=== PATIENT | male | born 1985 | race African-American/Black ===

== ENCOUNTER 2020-05-02 18:10 | Emergency (ER) | payer OTHER ==
[~2020-05-02] VITALS: Ht 170.2 cm; Wt 90.7 kg
[2020-05-02 19:39] LABS: ANION GAP 7 mmol/L (7-16); BUN 17 mg/dL (7-18); CALCIUM 9.4 mg/dL (8.5-10.1); CHLORIDE 105 mmol/L (98-107); CO2 29 mmol/L (21-32); CREATININE 1.3 mg/dL (0.7-1.3); GLUCOSE 85 mg/dL (74-106); POTASSIUM 4.5 mmol/L (3.5-5.1); SODIUM 141 mmol/L (136-145)
[2020-05-02 19:49] LABS: ALBUMIN 3.9 g/dL (3.4-5.0); SGOT 25 U/L (15-37); SGPT 36 U/L (30-65); TOTAL BILIRUBIN 0.2 mg/dL (0.2-1.0); TOTAL PROTEIN 7.9 g/dL (6.4-8.2); TROPONIN-I <0.06 ng/mL (<0.06)
[2020-05-02 19:51] LABS: HEMATOCRIT 43.8 % (42.0-52.0); HEMOGLOBIN 14.4 gm/dL (14.0-18.0); MCH 30.1 pg (26.0-34.0); MCHC 32.8 g/dL (28.0-37.0); MCV 91.6 fL (80.0-100.0); PLATELET COUNT 155 thou/uL (150-400); RBC 4.78 mil/uL (4.50-6.00); RDW 14.2 % (10.5-14.5); WBC 8.7 thou/uL (4.0-11.0)
[2020-05-02 20:30] LABS: ABSOLUTE NEUTROPHILS 4.6 thou/uL (1.4-8.2)
[2020-05-02] MEDS ORDERED: CYCLOBENZAPRINE5 MG PO (21:33)
[2020-05-02] MEDS ORDERED: MOBIC7.5 MG PO (21:33)
[2020-05-02 21:39] VITALS: BP 131/80
--- NOTE | 2020-05-03 07:10 | EKG ---
[facility] [place] [address] ELECTROCARDIOGRAM REPORT Name: SONJA KRUSE Room #: DEP [facility].#: [id number] Admission: 05/02/20 Attend Phys: Discharge: 05/02/20 Date of : 83 Report #: [id number] THIS REPORT FOR: cc: GILL Belcher family physician/PCP GILL Belcher family physician/PCP Devan Villagran MD [facility] ~ THIS REPORT FOR: //name// [facility] ED Test Date: 2020-05-02 Test Time: 18:51:53 Pat Name: SONJA KRUSE Department: Room: Gender: Philosophy Faculty Member: kkgian : 1985 Requested By: Anthony Dorsey Order Number: [id number] MD: Devan Villagran Measurements Intervals [place] Rate: 102 P: 57 WI: 180 QRS: 16 QRSD: 71 T: 39 QT: 315 QTc: 411 Interpretive Statements Sinus tachycardia ST elevation suggests acute pericarditis No previous ECG available for comparison Electronically Signed On 05-03-2020 7:10:23 CDT by Devan Villagran [email or web address] <ELECTRONICALLY SIGNED> By: Devan Villagran MD, FACC 05/03/20 0710 50 50 Devan Villagran MD, FAC /EPI
== END 2020-05-02 21:39 | disposition home or self-care (01) ==
LOC: ER 18:10
PROVIDERS: Physician Assistant
DX: S09.90XA Unspecified injury of head, initial encounter (principal); R07.89 Other chest pain; M25.561 Pain in right knee; M79.661 Pain in right lower leg; H53.8 Other visual disturbances; R11.2 Nausea with vomiting, unspecified; Z91.19 Patient's noncompliance with other medical treatment and regimen; Z86.718 Personal history of other venous thrombosis and embolism; V89.2XXA Person injured in unspecified motor-vehicle accident, traffic, initial encounter; Y93.89 Activity, other specified; Y92.488 Other paved roadways as the place of occurrence of the external cause; Y99.8 Other external cause status